=== PATIENT | male | born 1990 | race American Indian/Alaskan Native ===

== ENCOUNTER 2019-11-20 22:53 | Emergency (ER) | payer SELFPAY ==
[2019-11-20 23:00] VITALS: BP 129/72
[2019-11-21] MEDS ORDERED: oxyCODONE /ACETAMINOPHEN 5-325MG TAB PO ONE (02:13)
[2019-11-21] MEDS ORDERED: LIDOCAINE (1%) 10 MG/1 ML VIAL 20 ML MDV INFILTRATI ONE (02:13)
--- NOTE | 2019-11-21 02:16 | Emergency Department Report ---
Abscess Boil HPI - HPI Chief Complaint: Skin/Abscess/Foreign Body Stated Complaint: BOIL UNDER BUTTOCKS/PAINFUL Time Seen by Provider: 11/21/19 02:08 Location: Perianal Severity: Severe History: Yes Pain, Yes Previous History (patient states abscess has been reccurent in the same area 3 previous times), No Fever, No Purulent Drainage, No Numbness, No Foreign Body, No Insect Bite HPI: Patient complains of left buttock abscess x one week. He denies any fever/chills/sweats. Home Medications: Previous Rx's Medication Instructions Recorded Last Taken Type Sulfamethoxazole/Trimethoprim 1 each PO BID #10 tablet 10/10/18 Unknown Rx [Bactrim DS TAB] traMADoL [Ultram 50 MG tab] 50 mg PO Q6HR PRN #11 tablet 10/10/18 Unknown Rx Acetaminophen/Codeine [Tylenol 1 tab PO Q8H PRN #8 tab 11/21/19 Unknown Rx /Codeine # 3 tab] Clindamycin [Clindamycin CAP] 300 mg PO Q6H 10 Days #40 capsule 11/21/19 Unknown Rx Ibuprofen [Motrin 800 MG tab] 800 mg PO Q8HR PRN #21 tablet 11/21/19 Unknown Rx Mupirocin [Bactroban 2% OINT] 1 applic TP TID 7 Days #1 tube 11/21/19 Unknown Rx Allergies/Adverse Reactions: Allergies Allergy/AdvReac Type Severity Reaction Status Date / Time Penicillins Allergy Swelling Verified 11/20/19 22:58 ED Review of Systems ROS: Stated complaint: BOIL UNDER BUTTOCKS/PAINFUL Other details as noted in HPI Comment: All other systems reviewed and negative Skin: as per HPI ED Past Medical Hx - Past Medical History Additional medical history: Hx of boils - Social History Smoking Status: Current Every Day Smoker Substance Use Type: Alcohol, Marijuana, Non Opiate Pain - Medications Home Medications: Home Medications Medication Instructions Recorded Confirmed Last Taken Type Sulfamethoxazole/Trimethoprim 1 each PO BID #10 tablet 10/10/18 Unknown Rx [Bactrim DS TAB] traMADoL [Ultram 50 MG tab] 50 mg PO Q6HR PRN #11 tablet 10/10/18 Unknown Rx Acetaminophen/Codeine [Tylenol 1 tab PO Q8H PRN #8 tab 11/21/19 Unknown Rx /Codeine # 3 tab] Clindamycin [Clindamycin CAP] 300 mg PO Q6H 10 Days #40 capsule 11/21/19 Unknown Rx Ibuprofen [Motrin 800 MG tab] 800 mg PO Q8HR PRN #21 tablet 11/21/19 Unknown Rx Mupirocin [Bactroban 2% OINT] 1 applic TP TID 7 Days #1 tube 11/21/19 Unknown Rx ED Abscess Boil Physical Exam - Exam General: Vital signs noted. No distress. Alert and acting appropriately. Front/Back of Body, Lg (Color): 1 - large fluctuant abscess noted with significant tenderness to palpation. No surrounding erythema or cellulitis noted Size: 4 cm Exam: Yes Tenderness, Yes Fluctuance, Yes Normal Neurologic Exam, Yes Normal Circulation, No Surrounding Cellulites/Erythema, No Lymphangitis, No Heart Murmur I & D Note - I & D Note I & D Note: Area cleaned with Betadine prep. 6 mL of lidocaine 1% without epi used. 11 blade used to incise abscess. Copious purulent drainage obtained from old. Minimal bleeding. Patient tolerated procedure well without any immediate complications. ED Course Vital Signs 11/20/19 22:59 Temperature 98.4 F Pulse Rate 84 Respiratory 18 Rate Blood Pressure 129/72 O2 Sat by Pulse 99 Oximetry Critical care attestation.: If time is entered above; I have spent that time in minutes in the direct care of this critically ill patient, excluding procedure time. ED Medical Decision Making - Medical Decision Making Patient here for left buttock abscess for one week. History of recurrent abscess in the area per patient. Incision and drainage performed, patient tolerated procedure well. Wound culture sent. Vitals are stable and patient is nontoxic appearing. Patient is stable for discharge home. Karen mycin and mupirocin descriptions given. Recommend follow with primary care in 3-5 days. Discussed wound care instructions in detail and strict return precautions with patient who states understanding. ED Disposition Clinical Impression: Abscess Disposition: DC-01 TO HOME OR SELFCARE Is pt being admited?: No Condition: Stable Instructions: Abscess (ED), Abscess Incision and Drainage (ED) Prescriptions: Mupirocin [Bactroban 2% OINT] 1 applic TP TID 7 Days #1 tube Clindamycin [Clindamycin CAP] 300 mg PO Q6H 10 Days #40 capsule Ibuprofen [Motrin 800 MG tab] 800 mg PO Q8HR PRN #21 tablet PRN Reason: pain Acetaminophen/Codeine [Tylenol /Codeine # 3 tab] 1 tab PO Q8H PRN #8 tab PRN Reason: Pain , Severe (7-10) Referrals: PRIMARY CARE,MD [Primary Care Provider] - 3-5 Days
== END 2019-11-21 03:46 | disposition home or self-care (01) ==
LOC: ED 22:53
DX: L02.31 Cutaneous abscess of buttock (principal); F17.200 Nicotine dependence, unspecified, uncomplicated; F12.10 Cannabis abuse, uncomplicated; Z79.899 Other long term (current) drug therapy
CPT/HCPCS: 99282